=== PATIENT | male | born 1995 | race Caucasian/White ===

== ENCOUNTER 2017-03-04 22:19 | Emergency (ER) | payer SELFPAY ==
[~2017-03-04] VITALS: Ht 177.8 cm; Wt 81.6 kg
[~2017-03-04 22:19] MED LIST: IBUPROFEN800 M1 PO
[2017-03-04 22:23] VITALS: BP 138/88
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
--- NOTE | 2017-03-05 00:39 | RADIOLOGY REPORT ---
EXAMINATION: XR CHEST CLINICAL INFORMATION: Cough. COMPARISON: None TECHNIQUE: 2 views of the chest were obtained. FINDINGS: No significant abnormality is noted involving the heart, lungs, mediastinum, bony thorax or soft tissues. IMPRESSION: Unremarkable examination.
[2017-03-05] MEDS ORDERED: TRAMADOL HCL50 M1 PO (00:41)
== END 2017-03-05 01:00 ==
LOC: ERH 22:19
DX: S22.32XS Fracture of one rib, left side, sequela (principal); Y09 Assault by unspecified means; Y92.9 Unspecified place or not applicable; Y93.9 Activity, unspecified; R07.81 Pleurodynia; F17.210 Nicotine dependence, cigarettes, uncomplicated

== ENCOUNTER 2017-03-29 21:55 | Emergency (ER) | payer SELFPAY ==
[~2017-03-29] VITALS: Ht 177.8 cm; Wt 72.6 kg
[~2017-03-29 21:55] MED LIST changes: +TRAMADOL HCL50 M1 PO
[2017-03-29 22:10] VITALS: BP 151/82
[2017-03-29] MEDS ORDERED: CYCLOBENZAPRINE10 M1 PO (22:36)
--- NOTE | 2017-03-29 22:37 | ED NECK/BACK PAIN COMPLAINT ---
History of Present Illness General Chief Complaint: Neck/Upper Back Pain/Injury Stated Complaint: NECK AND SHOULDER PAIN Source: patient, family Exam Limitations: no limitations Vital Signs & Intake/Output Vital Signs & Intake/Output Vital Signs Date Time Temp Pulse Resp B/P B/P Pulse O2 O2 Flow FiO2 Mean Ox Delivery Rate 03/29 2210 98.8 62 16 151/82 98 Room Air Allergies Coded Allergies: lactose (LACTOSE INTOLERANT 03/03/17) Uncoded Allergies: GENERAL ANESTHESIA ("DIDN'T WAKE UP FOR 17 HRS" 03/04/17) Reconcile Medications Cyclobenzaprine HCl 10 MG TABLET 1 TAB PO TID PRN PAIN/SPASM Ibuprofen 800 MG TABLET 1 TAB PO TID PRN PAIN Tramadol HCl 50 MG TABLET 1 TAB PO BIDP PRN SEVERE PAIN Triage Note: RECEIVED 21 YO MALE C/O LEFT NECK PAIN RADIATING TO SHOULDER X 2 TO 3 DAYS. NO PAIN WHEN LIFTING LEFT ARM. PT REPORTS PAIN WHEN TURNING HEAD TO LEFT SIDE. Triage Nurses Notes Reviewed? yes HPI: Patient presents with pain to the left side of his neck that radiates into his left shoulder constant for the past 4 days. Patient states he woke up with these symptoms. Patient has taken Motrin and used ice without relief. Pain worsens when he turns his head all the way to the right. There is no numbness or tingling. There is no headache. The pain is aching in nature. He rates the pain as 8 out of 10. Past History Travel History Traveled to [place] past 21 day No Medical History Any Pertinent Medical History? 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 No Review of Systems Review of Systems Constitutional: Reports: no symptoms. Ears, Nose, Throat, Mouth: Reports: no symptoms. Respiratory: Reports: no symptoms. Cardiovascular: Reports: no symptoms. Gastrointestinal/Abdominal: Reports: no symptoms. Musculoskeletal: Reports: see HPI, neck pain. Neurological/Psychological: Reports: no symptoms. Physical Exam Physical Exam General Appearance: well developed/nourished, alert, awake Head: atraumatic, normal appearance Eyes: Bilateral: PERRL, EOMI. Ears, Nose, Throat, Mouth: hearing grossly normal, moist mucous membrane Neck: full range of motion, muscle spasm, pain, no midline tenderness Respiratory: normal breath sounds, chest non-tender, no respiratory distress, lungs clear Cardiovascular: regular rate/rhythm, normal peripheral pulses Gastrointestinal: normal bowel sounds, soft, non-tender, no organomegaly Back: normal inspection, normal range of motion, no vertebral tenderness Extremities: non-tender, normal range of motion Neurologic/Psych: no motor/sensory deficits, awake, alert, oriented x 3, normal gait, normal mood/affect Progress Differential Diagnosis: herniated disc, myofascial strain Plan of Care: Current Medications Sig/Payam Start time Last Medication Dose Stop Time Status Admin Cyclobenzaprine HCl 10 MG ONCE ONE 03/29 2245 AC (Flexeril 10MG Tab) 03/29 2246 Departure Departure Disposition: HOME OR SELF CARE Condition: Stable Clinical Impression Primary Impression: Muscle spasm Referrals: PATIENT HAS NO PRIMARY CARE DR (PCP/Family) Additional Instructions: USE MOIST HEAT TAKE FLEXERIL UP TO 3 TIMES A DAY NEEDED. IT WILL MAKE YOU SLEEPY SO DO NOT DRIVE AFTER TAKING IT. Departure Forms: Customer Survey General Discharge Information Prescriptions: Current Visit Scripts Cyclobenzaprine HCl 1 TAB PO TID PRN PAIN/SPASM #20 TAB
== END 2017-03-29 22:43 ==
LOC: ERH 21:55
DX: M62.838 Other muscle spasm (principal)